=== PATIENT | male | born 1935 | race Caucasian/White ===

== ENCOUNTER 2018-02-03 13:44 | Outpatient (CLI) | payer MEDICARE, BC ==
[2018-02-03 16:12] LABS: Hemoglobin 13.4 g/dL (14.0-18.0); Mean Corpuscular HGB CONC 31.2 g/dL (32.0-36.0); Mean Corpuscular Hemoglobin 29.2 pg (27.0-31.0); Mean Corpuscular Volume 93.4 fL (78.0-98.0); Mean Platelet Volume 6.4 fL (7.4-10.4); Platelet Count 303 thou/uL (130-400); RBC Distribution Width 12.8 % (11.5-14.5); White Blood Cell (WBC) Count 11.6 thou/uL (4.8-10.8)
[2018-02-03 16:30] LABS: Anion Gap 14 mmol/L (10-20); BUN (Urea Nitrogen) 21 mg/dL (8.4-25.7); Calc. Creatinine Clearance 0 mL/min (70-130); Calcium 9.3 mg/dL (7.8-10.44); Carbon Dioxide 24 mmol/L (23-31); Chloride 98 mmol/L (98-107); Estimated GFR-MDRD Greater than 90; Glucose 101 mg/dL (83-110); Potassium 4.3 mmol/L (3.5-5.1); Sodium 132 mmol/L (136-145)
--- NOTE | 2018-02-04 22:45 | EKG ---
Test Reason : Blood Pressure : / mmHG Vent. Rate : 063 BPM Atrial Rate : 063 BPM P-R Int : 166 ms QRS Dur : 072 ms QT Int : 396 ms P-R-T Axes : 082 028 053 degrees QTc Int : 405 ms Poor data quality, interpretation may be adversely affected Sinus rhythm with marked sinus arrhythmia Cannot rule out Anterior infarct , age undetermined Abnormal ECG When compared with ECG of 04-MAR-1999 04:34, Incomplete right bundle branch block is no longer Present Confirmed by KATHY HENRY, DR. Saunders ([id number]) on 02/04/2018 10:44:42 PM Referred By: JORGE A Confirmed By:DR. Nicky CHAVEZ MD
== END 2018-02-03 13:45 | disposition home or self-care (01) ==
LOC: LABBT 13:44
PROVIDERS: ATTEND Neurological Surgery
DX: Z01.818 Encounter for other preprocedural examination (principal); M48.062 Spinal stenosis, lumbar region with neurogenic claudication
CPT/HCPCS: 80048; 85027; 93005; 93010

== ENCOUNTER 2018-02-07 06:07 | Observation (INO) | payer MEDICARE, BC ==
[2018-02-03 13:58] VITALS: BMI 23.1
[2018-02-07] MEDS ORDERED: Thrombin 5000 UNITS/5 ML VIAL ONE (06:52)
[2018-02-07] MEDS ORDERED: CEFAZOLIN/Water 2 GM/20 ML SYRINGE ONE (07:41)
[2018-02-07] MEDS ORDERED: Fentanyl 100 MCG/2 ML VIAL ONE ×5 (07:41→11:44)
[2018-02-07] MEDS ORDERED: Hydrocortisone Sod Succ/PF 100 mg/2 ml Vial ONE (07:43)
--- NOTE | 2018-02-07 10:20 | OP ---
DATE OF PROCEDURE: 02/07/2018 SURGEON: Jose Daniel Ventura M.D. PRIMARY CLINICIAN: Natividad Calero PA-C. PROCEDURE PERFORMED: L4-L5 laminectomy and right L4-L5 discectomy. PROCEDURE IN DETAIL: The patient was brought into the operating room and intubated. He was rolled i n the prone position on gel-filled chest rolls. Incision was made exposing L4 and L5 and our level w as confirmed by x-ray. We performed complete L5 and inferior L4 laminectomies. We extend the ky ctomy to the right and explored the disk space and found a herniated disk compressing the right L5 ne rve root. The disc was incised and debrided in multiple fragments and a complete decompression was a chieved. Significant CSF was emanating from the region of the dura and the region of the disc. This was anterior and could not be visualized. Gelfoam was used in the lateral recess. The wound was th en extensively irrigated, immaculate hemostasis was secured. Vancomycin powder was applied and the w ound was closed in anatomic layers.
[2018-02-07] MEDS ORDERED: Glycopyrrolate 0.2 MG/ML 5 ML SYRINGE ONE (13:44)
[2018-02-07] MEDS ORDERED: Lidocaine 1% PF 5 ML VIAL ONE (13:44)
[2018-02-07] MEDS ORDERED: PROPOFOL 200 MG/20 ML VIAL ONE (13:44)
[2018-02-07] MEDS ORDERED: PHENYLEPHRINE-NS 100 MCG/ML 10 ML SYRINGE ONE (13:44)
[2018-02-07] MEDS ORDERED: ePHEDrine/0.9% NaCl/PF SYRINGE 50 mg/10 ml ONE (13:44)
[2018-02-07] MEDS ORDERED: Ondansetron HCl/PF 4 MG/2 ML Vial ONE (13:44)
[2018-02-07] MEDS ORDERED: diphenhydrAMINE 25 MG CAP PO PRN (14:21)
[2018-02-07] MEDS ORDERED: Milk Of Magnesia 30 ML UDCUP PO PRN (14:21)
[2018-02-07] MEDS ORDERED: tiZANidine HCl 4 MG TAB PO PRN (14:21)
[2018-02-07] MEDS ORDERED: diphenhydrAMINE 50 MG/ML VIAL IVP PRN (14:21)
[2018-02-07] MEDS ORDERED: Sodium Chloride 0.9% 1,000 ML IV SCH (14:21)
[2018-02-07] MEDS ORDERED: HYDROcodone/Acetaminophen 10/325 mg Tablet PO PRN ×2 (14:21)
[2018-02-07] MEDS ORDERED: Promethazine 25 MG TAB PO PRN (14:21)
[2018-02-07] MEDS ORDERED: Mag-Al 1200 mg/1200 mg/30 ML UDCUP PO PRN (14:21)
[2018-02-07] MEDS ORDERED: traMADol HCl 50 MG TAB PO PRN (14:21)
[2018-02-07] MEDS ORDERED: Promethazine HCl 12.5 MG SUPP PR PRN (14:21)
[2018-02-07] MEDS ORDERED: Promethazine HCl 25 MG/ML VIAL IM PRN (14:21)
[2018-02-07] MEDS ORDERED: Ondansetron HCl/PF 4 MG/2 ML Vial IM PRN (14:23)
[2018-02-07] MEDS ORDERED: Morphine 2 MG/ML SYRINGE SLOW IVP PRN ×2 (14:29→14:31)
[2018-02-07] MEDS: traMADol HCl 50 MG TAB PO PRN ×2 (15:40→18:40)
[2018-02-07] MEDS ORDERED: Ondansetron HCl/PF 4 MG/2 ML Vial IVP PRN (15:45)
--- NOTE | 2018-02-07 19:37 | PDOC.PN ---
- Subjective Encounter Start Date: 02/07/18 Encounter Start Time: 19:35 Subjective: Consulted for med mgmt s/p L4-L5 laminectomy. Hx of DMII, HTN, CAD -: lumbar radiculopathy. Some pain in low back when lying supine. -: Reviewed pertinent hx, labs, EKG's. - Objective MAR Reviewed: Yes Vital Signs & Weight: Vital Signs (12 hours) Temp Pulse Resp BP Pulse Ox 02/07/18 15:31 97.5 F L 69 16 126/61 96 02/07/18 12:55 96.7 F L 69 20 144/69 H 98 Weight Weight 185 lb 7.986 oz Additional Labs: Accuchecks 02/07/18 07:12 POC Glucose 91 Laboratory Tests 02/03/18 02/03/18 14:55 14:55 WBC 11.6 H Hgb 13.4 L Hct 43.0 Plt Count 303 Sodium 132 L Potassium 4.3 Chloride 98 Carbon Dioxide 24 Anion Gap 14 BUN 21 Creatinine 0.76 Estimated GFR (MDRD) Greater than 90 Glucose 101 Calcium 9.3 EKG Reviewed by me: Yes (Tele - SR in 60's) Phys Exam - Physical Examination Constitutional: NAD alert, responsive HEENT: PERRLA, sclera anicteric, oral pharynx no lesions Neck: no nodes, no JVD, supple, full ROM Respiratory: no wheezing, no rales, no rhonchi, clear to auscultation bilateral S1, S2 Cardiovascular: RRR, no significant murmur, no rub, gallop Gastrointestinal: soft, non-tender, no distention, positive bowel sounds Musculoskeletal: no edema, pulses present Neurological: normal sensation, moves all 4 limbs Psychiatric: normal affect, A&O x 3 Skin: no rash, normal turgor, cap refill <2 seconds Dx/Plan (1) Diabetes mellitus, type II, insulin dependent Code(s): E11.9 - TYPE 2 DIABETES MELLITUS WITHOUT COMPLICATIONS; Z79.4 - CANDY DIPPER HAND (CURRENT) USE OF INSULIN Status: Chronic Comment: ISS, ADA, serial accuchecks, resume home Lantus in am (2) HTN (hypertension) Code(s): I10 - ESSENTIAL (PRIMARY) HYPERTENSION Status: Chronic Qualifiers: Hypertension type: essential hypertension Qualified Code(s): I10 - Essential (primary) hypertension Comment: Continue Metoprolol, Losartan and Cardura, serial monitoring (3) CAD (coronary artery disease) Code(s): I25.10 - ATHSCL HEART DISEASE OF [place] CORONARY ARTERY W/O ANG PCTRS Status: Chronic Comment: Stable, continue Lipitor, ASA (4) Lumbar radiculopathy Code(s): M54.16 - RADICULOPATHY, LUMBAR REGION Status: Acute Comment: L4-L5 laminectomy (5) Status post lumbar laminectomy Code(s): Z98.890 - OTHER SPECIFIED POSTPROCEDURAL STATES Status: Acute Comment: Pain control, PT/OT - Plan continue antibiotics, PT/OT, social worker delinquency prevention, incentive spirometry, out of bed/ ambulate, DVT proph w/SCDs Stable currently -: ISS for reflexive glucose coverage -: Start home Metoprolol, Losartan -: Pain control with T#3 due to [place] intolerance -: Likely home in 24h * .
[2018-02-07] MEDS ORDERED: Dextrose 50% Abboject 50 ML SYRINGE SLOW IVP PRN (19:42)
[2018-02-07] MEDS ORDERED: Dextrose 5% in Water 1,000 ML IV PRN (19:42)
[2018-02-07] MEDS ORDERED: HumaLOG 300 UNITS/3 ML VIAL SC PRN ×2 (19:42)
[2018-02-07] MEDS ORDERED: Simvastatin 40 MG TAB PO SCH (21:00)
[2018-02-07] MEDS ORDERED: Ezetimibe 10 MG TAB PO SCH (21:00)
[2018-02-07] MEDS ORDERED: Doxazosin Mesylate 4 MG TAB PO SCH (21:00)
[2018-02-07] MEDS ORDERED: OLOPATADINE HCL EA EYE SCH (21:00)
[2018-02-07] MEDS ORDERED: Non-Formulary Item 1 EACH (Ezetimibe/Simvastatin [Ezetimibe-Simvastatin 10-40 Mg] 1 TAB) PO SCH (21:00)
[2018-02-07] MEDS ORDERED: Non-Formulary Item 1 EACH (Insulin Glargine,Hum.Rec.Anlog [Lantus Solostar] 35 UNITS) SQ SCH (21:00)
[2018-02-07] MEDS ORDERED: Insulin Glargine 35 UNITS in Pre-Filled Syringe 1 EACH SC SCH (21:00)
[2018-02-07] MEDS ORDERED: Gabapentin 300 MG CAP PO SCH (21:30)
[2018-02-07] MEDS: Acetaminophen/Codeine 30-300mg Tablet PO PRN (22:12)
[2018-02-07] MEDS: Metoprolol Tartrate 50 MG TAB PO SCH (22:14)
[2018-02-07] MEDS: Ketotifen Fumarate 0.025% Ophth Soln 5 ml Bottle EA EYE SCH (22:16)
[2018-02-07] MEDS: CEFAZOLIN/Water 2 GM/20 ML SYRINGE SLOW IVP SCH (22:18)
[2018-02-08] MEDS: CEFAZOLIN/Water 2 GM/20 ML SYRINGE SLOW IVP SCH (05:35)
[2018-02-08 05:52] VITALS: TEMP 98.3
[2018-02-08] MEDS: Acetaminophen/Codeine 30-300mg Tablet PO PRN ×2 (06:01→10:24)
[2018-02-08] MEDS ORDERED: metFORMIN 500 MG TAB PO SCH (08:00)
[2018-02-08] MEDS ORDERED: predniSONE 5 MG TAB PO SCH (08:00)
--- NOTE | 2018-02-08 08:15 | DIS ---
DATE OF ADMISSION: 02/07/2018 DATE OF DISCHARGE: 02/08/2018 ATTENDING PHYSICIAN: Jose Daniel Ventura M.D. HOSPITAL COURSE: The patient is an 83-year-old male status post L4-L5 laminectomy for lumb ar stenosis and neurogenic claudication. During the surgery, there was small CSF leak. Following th e surgery, the patient was transitioned to the 2nd floor where his pain was well controlled with p.o. medications, he was tolerating regular diet, and he was voiding appropriate. The patient has been u p ambulating short distances with his walker. They did report small amount of bloody drainage from t he incision overnight, but this did not saturate the dressing or require dressing changes. I am visiting with the patient this morning, he is comfortable, in no acute distress. He has 5/5 str ength throughout. No focal motor weaknesses. His sensation is intact to light touch. I examined hi s incision and it appears dry with no active drainage. There is a small amount of bloody discharge o n the dressing and we will change his dressing this morning. We will plan to dismiss the patient to home. I have discussed home care with b.i.d. dressing changes and they will monitor the incision closely. They will contact us if he has any persistent drainage. I have also discussed other home care precautions such as no bending, twisting or lifting greater t craig 10 pounds. He has been provided scripts with [place] and [facility]. We will follow up in 2 weeks a s scheduled. Please reach out to Neurosurgery for additional questions or concerns.
[2018-02-08 08:31] VITALS: BP 109/51
[2018-02-08] MEDS ORDERED: FLUoxetine HCl 10 MG CAP PO SCH (09:00)
[2018-02-08] MEDS ORDERED: Losartan 25 MG TAB PO SCH (09:00)
[2018-02-08] MEDS ORDERED: Ferrous Sulfate 325 MG TAB PO SCH (09:00)
[2018-02-08] MEDS ORDERED: Gabapentin 300 MG CAP PO SCH (09:00)
[2018-02-08] MEDS: Metoprolol Tartrate 50 MG TAB PO SCH (09:48)
[2018-02-08] MEDS: Ketotifen Fumarate 0.025% Ophth Soln 5 ml Bottle EA EYE SCH (09:49)
== END 2018-02-08 12:35 | disposition home or self-care (01) ==
LOC: SDC 06:07 → 2SW 13:09
PROVIDERS: ADMIT Neurological Surgery; ATTEND Neurological Surgery
PROC: 0ST20ZZ Resection of Lumbar Vertebral Disc, Open Approach (ICD-10-PCS; principal; 2018-02-07)
PROC: 01NB0ZZ Release Lumbar Nerve, Open Approach (ICD-10-PCS; 2018-02-07)
DX: M48.062 Spinal stenosis, lumbar region with neurogenic claudication (principal); M51.16 Intervertebral disc disorders with radiculopathy, lumbar region; I25.10 Atherosclerotic heart disease of native coronary artery without angina pectoris; I10 Essential (primary) hypertension; E78.5 Hyperlipidemia, unspecified; E11.9 Type 2 diabetes mellitus without complications; K21.9 Gastro-esophageal reflux disease without esophagitis; M19.90 Unspecified osteoarthritis, unspecified site; G89.29 Other chronic pain; M25.569 Pain in unspecified knee; Z79.4 Long term (current) use of insulin; Z79.82 Long term (current) use of aspirin; Z79.899 Other long term (current) drug therapy; Z88.2 Allergy status to sulfonamides; Z95.5 Presence of coronary angioplasty implant and graft
CPT/HCPCS: 63047; 63048; 76001; 82962 ×2; 96374 ×2; 96376; 97116; 97139; G0378; G8978; G8979; 36416; J1200; J1720; J2001; J2405; J2704; J3010; J3370

== ENCOUNTER 2018-07-11 12:44 | Outpatient (CLI) | payer MEDICARE, BC ==
[~2018-07-11 12:44] MED LIST: Gadobenate Dimeglumine 529 MG/1 ML (20ML VIAL) ONE
--- NOTE | 2018-07-11 15:51 | MRI ---
MRI LUMBAR SPINE WITH AND WITHOUT CONTRAST: 07/11/2018 HISTORY: An 83-year-old male with M48.062, lumbar stenosis with claudication. COMPARISON: None. TECHNIQUE: Multiple sequences obtained in axial and sagittal planes, pre and post IV injection of gadolinium-bas ed contrast agent: MultiHance 20 mL. FINDINGS: For the purposes of this report, it will be assumed that there are 5 lumbar-type vertebrae. The vert ebral body heights are maintained. No major bone marrow signal abnormality. No major spondylolisthes is. The findings by individual levels are as follows: T12-L1: Normal. The conus medullaris terminates at this level. L1-L2: Essentially normal. L2-L3: Moderate disk space narrowing. Slight degenerative retrolisthesis of L2 on L3. Diffuse disk bulge. Mild bilateral degenerative facet changes. Mild bilateral neural foraminal stenosis. Mild central spinal canal stenosis. Prominent posterior epidural fat pad results in severe thecal sac sagrario nosis. L3-L4: Severe bilateral degenerative facet disease. Moderate disk space narrowing. Mild diffuse di sk bulge. Broad-based disk-osteophytic bar complex encroaches upon the anterior aspect of the spinal canal. Moderately thickened ligamentum flavum and facet hypertrophy encroach upon the posterior asp ect of the spinal canal. Moderate to severe central spinal canal stenosis. Severe thecal sac stenos is. High-grade lateral recess stenosis bilaterally. Mild to moderate bilateral neural foraminal sagrario nosis. L4-L5: Moderate to severe disk space narrowing, asymmetrically worse on the right. Moderate to barbara re right neural foraminal stenosis, with an asymmetrically prominent right far lateral component of d isk bulge-osteophytic bar complex indenting the inferior surface of the right L4 nerve root at the ne ural foramen and lateral to the neural foramen, with enhancement of or around the exiting nerve root with edema. Mild to moderate left neural foraminal stenosis. Prominent diffuse disk bulge. Severe right degenerative facet changes. Mild to moderate left degenerative facet changes. Moderate to sev ere central stenosis. Lateral recess stenosis bilaterally, right greater than left. Midline laminec candie defect. Enhancement of midline retrospinal soft tissues. This enhancement could either represe nt granulation tissue or scar tissue, depending on the time of the surgery. There is a fluid collect ion located posterior to the dorsal lumbar fascia, which is elongated in the craniocaudal dimension. Short axis caliber varies by exact location, but it is approximately 1 x 0.7 cm. The craniocaudal d imension is approximately 6 cm. It contains at least one septation. L5-S1: Generous caliber of spinal canal and thecal sac. Bilaterally hypoplastic facet joints. Norm al disk. No neural foraminal stenosis. Midline laminectomy defect with enhancement of midline retro spinal soft tissues. IMPRESSION: 1. Status post midline laminectomies at L4-L5 and L5-S1. 2. Impingement on the exiting right L4 nerve root at the peripheral aspect of the right L4-5 neural foramen, with enhancement. 3. Vertically oriented, thin, post surgical, superficial fluid collection, posterior to the dorsal l umbar fascia, at the levels of the laminectomy. 4. Lateral recess stenosis, especially on the right, at L4-L5. 5. High-grade central spinal canal stenosis, including severe thecal sac stenosis, at L3-L4. 6. Severe bilateral facet osteoarthrosis at L3-L4. LATANYA Wayne POS: MICHAEL
== END 2018-07-11 12:45 | disposition home or self-care (01) ==
LOC: TBSIIMAG 12:44
PROVIDERS: ATTEND Neurological Surgery
DX: M48.062 Spinal stenosis, lumbar region with neurogenic claudication (principal); M47.816 Spondylosis without myelopathy or radiculopathy, lumbar region; Z98.890 Other specified postprocedural states
CPT/HCPCS: 72158; 82565; A9577

== ENCOUNTER 2023-10-16 12:43 | Inpatient (IN) | payer BC, MEDICARE ==
[2023-10-16 13:31] LABS: #Basophils 0.03 10x3/uL (0.0-0.2); #Eosinphils Less than 0.03 10x3/uL (0.0-0.7); %Basophils 0.2 % (0.0-1.0); %Eosinophils 0.1 % (0.0-10.0); %Lymphocytes 5.4 % (21.0-51.0); %Monocytes 6.8 % (0.0-10.0); %Neutrophils 86.9 % (42.0-75.0); Hematocrit 39.6 % (42.0-52.0); Hemoglobin 13.5 g/dL (14.0-18.0); Mean Corpuscular HGB CONC 34.1 g/dL (32.0-36.0); Mean Corpuscular Hemoglobin 29.9 pg (27.0-31.0); Mean Corpuscular Volume 87.6 fL (78.0-98.0); Mean Platelet Volume 8.1 fL (7.4-10.4); Platelet Count 221 10x3/uL (130-400); Red Blood Cell (RBC) Count 4.52 mill/uL (4.70-6.10)
[2023-10-16 13:45] LABS: ALT (SGPT) 14 U/L (8-55); AST (SGOT) 19 U/L (5-34); Albumin 3.1 g/dL (3.4-4.8); Alkaline Phosphatase 55 U/L (40-110); Anion Gap 15 mmol/L (10-20); BUN (Urea Nitrogen) 23 mg/dL (8.4-25.7); Bilirubin, Total 0.5 mg/dL (0.2-1.2); Calc. Creatinine Clearance 0 mL/min (70-130); Calcium 9.4 mg/dL (7.8-10.44); Carbon Dioxide 20 mmol/L (23-31); Chloride 93 mmol/L (98-107); Estimated GFR 87; Globulin 2.9 g/dL (2.4-3.5); Glucose 84 mg/dL (83-110); Potassium 4.6 mmol/L (3.5-5.1); Sodium 123 mmol/L (136-145)
[2023-10-16 13:51] LABS: Troponin I 0.013 ng/mL (< 0.028)
[2023-10-16] MEDS ORDERED: cefTRIAXone (ROCEPHIN) 1 GM VIAL ONE (14:31)
[2023-10-16] MEDS ORDERED: Acetaminophen 325 MG TAB ONE (14:31)
[2023-10-16 17:25] LABS: Bilirubin Negative (Negative); Blood, Urine 1+ (Negative); CAUTI Indications for Culture Alt mental st,lethar; Clarity Turbid (Clear); Glucose, Urine (Dipstick) Normal (Negative); Ketone, Urine Negative (Negative); Leukocyte 250 Leu/uL (Negative); Nitrite Negative (Negative); Protein, Urine (Dipstick) 10 mg/dL (Neg-Trace); Specific Gravity, Urine 1.018 (1.002-1.036); Squamous Epithelial 0-3 HPF (0-3); Urobilinogen Normal mg/dL (Less than 2); WBC/HPF 21-50 HPF (0-3); pH, Urine 5.5 (5.0-9.0)
[2023-10-16 17:26] LABS: Bacteria/HPF 1+ HPF (None Seen)
[2023-10-16 17:27] LABS: Urine Culture Reflex Yes Yes
[2023-10-16] MEDS ORDERED: Ondansetron ODT 4 MG TAB PO PRN (17:44)
[2023-10-16] MEDS ORDERED: Acetaminophen 325 MG TAB PO PRN (17:44)
[2023-10-16] MEDS ORDERED: Acetaminophen 650 MG Suppository PR PRN (17:44)
[2023-10-16] MEDS ORDERED: Ondansetron PF 4 MG/2 ML Vial IVP PRN (17:44)
[2023-10-16] MEDS ORDERED: Dextrose 50% Abboject 50 ML SYRINGE SLOW IVP PRN (18:35)
[2023-10-16] MEDS ORDERED: Glucagon 1 MG/ML KIT IM PRN (18:35)
[2023-10-16] MEDS ORDERED: Dextrose 5% in Water 1,000 ML IV PRN (18:35)
[2023-10-16 20:06] VITALS: BMI 21.6
[2023-10-16 20:11] LABS: Anion Gap 13 mmol/L (10-20); BUN (Urea Nitrogen) 20 mg/dL (8.4-25.7); Calc. Creatinine Clearance 73 mL/min (70-130); Calcium 8.8 mg/dL (7.8-10.44); Carbon Dioxide 21 mmol/L (23-31); Chloride 94 mmol/L (98-107); Estimated GFR 86; Glucose 130 mg/dL (83-110); Potassium 4.7 mmol/L (3.5-5.1); Sodium 123 mmol/L (136-145)
[2023-10-16 20:13] LABS: Magnesium 1.4 mg/dL (1.6-2.6); Phosphorus 3.1 mg/dL (2.3-4.7)
[2023-10-16] MEDS ORDERED: Electrolyte Replacement Protocol FS SCH (20:30)
[2023-10-16] MEDS: Magnesium Sulfate In Water 4 GM in Premix 1 BAG IVPB SCH (22:15)
[2023-10-16] MEDS: Sodium Chloride 0.9% 1,000 ML IV SCH (22:16)
[2023-10-16] MEDS: Saccharomyces boulardii 250 MG CAP PO SCH (23:01)
[2023-10-17 05:17] LABS: #Basophils 0.07 10x3/uL (0.0-0.2); %Basophils 0.5 % (0.0-1.0); %Lymphocytes 21.7 % (21.0-51.0); %Monocytes 7.5 % (0.0-10.0); %Neutrophils 68.7 % (42.0-75.0); Hematocrit 41.6 % (42.0-52.0); Hemoglobin 13.7 g/dL (14.0-18.0); Mean Corpuscular HGB CONC 32.9 g/dL (32.0-36.0); Mean Corpuscular Hemoglobin 30.1 pg (27.0-31.0); Mean Corpuscular Volume 91.4 fL (78.0-98.0); Platelet Count 215 10x3/uL (130-400); RBC Distribution Width 15.3 % (11.5-14.5); Red Blood Cell (RBC) Count 4.55 mill/uL (4.70-6.10)
[2023-10-17 05:38] LABS: Anion Gap 15 mmol/L (10-20); BUN (Urea Nitrogen) 19 mg/dL (8.4-25.7); Calc. Creatinine Clearance 73 mL/min (70-130); Calcium 9.1 mg/dL (7.8-10.44); Carbon Dioxide 21 mmol/L (23-31); Chloride 95 mmol/L (98-107); Estimated GFR 86; Glucose 68 mg/dL (83-110); Sodium 127 mmol/L (136-145)
[2023-10-17] MEDS ORDERED: Magnesium Sulfate In Water 4 GM in Premix 1 BAG IVPB SCH (08:00)
[2023-10-17] MEDS: Magnesium 2 GM/50 ML(in water) 2 GM in Premix 1 BAG IVPB SCH (08:46)
[2023-10-17] MEDS: Aspirin 81 mg Enteric Coated Tablet PO SCH (08:47)
[2023-10-17] MEDS: predniSONE 5 MG TAB PO SCH (08:48)
[2023-10-17] MEDS: Saccharomyces boulardii 250 MG CAP PO SCH (08:48)
[2023-10-17] MEDS: LevoFLOXacin 750 mg/D5W 750 MG in Premix 1 BAG IVPB SCH (11:00)
[2023-10-17] MEDS ORDERED: cefTRIAXone\\ROCEPHIN 1 GM in Sodium Chloride 0.9% 100 ML IVPB SCH (14:00)
[2023-10-17 14:14] VITALS: BMI 21.6
[2023-10-17] MEDS ORDERED: Dextrose 50% Abboject 50 ML SYRINGE SLOW IVP PRN (17:49)
[2023-10-17] MEDS ORDERED: Dextrose 5% in Water 1,000 ML IV PRN (17:49)
[2023-10-17] MEDS ORDERED: Glucagon 1 MG/ML KIT IM PRN (17:49)
[2023-10-17] MEDS: Metoprolol Tartrate 25 MG TAB PO SCH (19:57)
[2023-10-17] MEDS: Gabapentin 300 MG CAP PO SCH ×2 (19:58→19:59)
[2023-10-17] MEDS: Tamsulosin HCl 0.4 MG CAP PO SCH (19:59)
[2023-10-17] MEDS: Ferrous Sulfate 325 MG TAB PO SCH (20:00)
[2023-10-17] MEDS: Insulin Glargine 30 UNITS/0.3 ML VIAL SC SCH (20:00)
[2023-10-17] MEDS: HumaLOG 300 UNITS/3 ML VIAL SC PRN (20:24)
[2023-10-18 04:54] LABS: #Basophils 0.05 10x3/uL (0.0-0.2); %Basophils 0.7 % (0.0-1.0); %Eosinophils 1.4 % (0.0-10.0); %Lymphocytes 23.3 % (21.0-51.0); Hematocrit 37.7 % (42.0-52.0); Hemoglobin 12.8 g/dL (14.0-18.0); Mean Corpuscular Hemoglobin 29.7 pg (27.0-31.0); Mean Corpuscular Volume 87.5 fL (78.0-98.0); Mean Platelet Volume 7.8 fL (7.4-10.4); Platelet Count 182 10x3/uL (130-400); Red Blood Cell (RBC) Count 4.31 mill/uL (4.70-6.10)
[2023-10-18 05:14] LABS: Anion Gap 10 mmol/L (10-20); BUN (Urea Nitrogen) 14 mg/dL (8.4-25.7); Calc. Creatinine Clearance 87 mL/min (70-130); Calcium 9.1 mg/dL (7.8-10.44); Carbon Dioxide 26 mmol/L (23-31); Chloride 96 mmol/L (98-107); Estimated GFR 91; Glucose 92 mg/dL (83-110); Potassium 3.6 mmol/L (3.5-5.1); Sodium 128 mmol/L (136-145)
[2023-10-18] MEDS: LevoFLOXacin 750 MG TAB PO SCH (09:08)
[2023-10-18] MEDS: Finasteride 5 MG TAB PO SCH (09:08)
[2023-10-18] MEDS: Ferrous Sulfate 325 MG TAB PO SCH (09:09)
[2023-10-18] MEDS: Famotidine 20 MG TAB PO SCH (21:19)
[2023-10-18] MEDS: Valsartan 80 MG TAB PO SCH (21:19)
[2023-10-18] MEDS: Enoxaparin 40 MG (0.4 mL) SYRINGE SC SCH (21:20)
[2023-10-18] MEDS: Insulin Glargine 30 UNITS/0.3 ML VIAL SC SCH (21:20)
[2023-10-19 04:41] LABS: Anion Gap 10 mmol/L (10-20); BUN (Urea Nitrogen) 17 mg/dL (8.4-25.7); Calc. Creatinine Clearance 83 mL/min (70-130); Calcium 9.3 mg/dL (7.8-10.44); Carbon Dioxide 26 mmol/L (23-31); Chloride 96 mmol/L (98-107); Estimated GFR 89; Glucose 127 mg/dL (83-110); Potassium 3.9 mmol/L (3.5-5.1); Sodium 128 mmol/L (136-145)
[2023-10-19] MEDS: LevoFLOXacin 750 MG TAB PO SCH (06:19)
[2023-10-19] MEDS ORDERED: hydrALAZINE 20 MG/ML VIAL SLOW IVP PRN (09:04)
[2023-10-19] MEDS: Polyethylene Glycol 3350 17 GM Packet PO PRN (12:27)
[2023-10-19] MEDS: TOLVAPTAN 30 MG TAB PO SCH (17:24)
[2023-10-20] MEDS: LevoFLOXacin 500 MG TAB PO SCH (06:25)
[2023-10-20 09:10] LABS: #Basophils 0.06 10x3/uL (0.0-0.2); %Basophils 0.4 % (0.0-1.0); %Eosinophils 0.8 % (0.0-10.0); %Lymphocytes 15.1 % (21.0-51.0); %Monocytes 10.5 % (0.0-10.0); %Neutrophils 72.6 % (42.0-75.0); Hematocrit 45.9 % (42.0-52.0); Hemoglobin 15.2 g/dL (14.0-18.0); Mean Corpuscular HGB CONC 33.1 g/dL (32.0-36.0); Mean Corpuscular Hemoglobin 29.6 pg (27.0-31.0); Mean Corpuscular Volume 89.5 fL (78.0-98.0); Platelet Count 239 10x3/uL (130-400); RBC Distribution Width 15.2 % (11.5-14.5); Red Blood Cell (RBC) Count 5.13 mill/uL (4.70-6.10)
[2023-10-20 09:58] LABS: Anion Gap 13 mmol/L (10-20); BUN (Urea Nitrogen) 19 mg/dL (8.4-25.7); Calc. Creatinine Clearance 78 mL/min (70-130); Calcium 9.7 mg/dL (7.8-10.44); Carbon Dioxide 25 mmol/L (23-31); Chloride 98 mmol/L (98-107); Estimated GFR 88; Glucose 98 mg/dL (83-110); Potassium 4.2 mmol/L (3.5-5.1); Sodium 132 mmol/L (136-145)
[2023-10-20] MEDS: HumaLOG 300 UNITS/3 ML VIAL SC PRN (16:28)
[2023-10-21 05:45] LABS: #Basophils 0.07 10x3/uL (0.0-0.2); %Basophils 0.6 % (0.0-1.0); %Eosinophils 1.2 % (0.0-10.0); %Lymphocytes 19.4 % (21.0-51.0); %Monocytes 11.8 % (0.0-10.0); %Neutrophils 66.5 % (42.0-75.0); Hematocrit 39.6 % (42.0-52.0); Mean Corpuscular HGB CONC 32.8 g/dL (32.0-36.0); Mean Corpuscular Volume 91.2 fL (78.0-98.0); Platelet Count 218 10x3/uL (130-400); RBC Distribution Width 15.2 % (11.5-14.5); Red Blood Cell (RBC) Count 4.34 mill/uL (4.70-6.10)
[2023-10-21 06:18] LABS: Anion Gap 13 mmol/L (10-20); BUN (Urea Nitrogen) 30 mg/dL (8.4-25.7); Calc. Creatinine Clearance 68 mL/min (70-130); Calcium 9.2 mg/dL (7.8-10.44); Carbon Dioxide 25 mmol/L (23-31); Chloride 100 mmol/L (98-107); Estimated GFR 84; Glucose 127 mg/dL (83-110); Potassium 4.2 mmol/L (3.5-5.1); Sodium 134 mmol/L (136-145)
[2023-10-21 12:10] VITALS: BP 114/56; TEMP 97.7
== END 2023-10-21 11:45 | DRG 644 ==
LOC: ERS 12:43 → 2NO 18:27 → T4-B 10-18 16:01
PROVIDERS: ADMIT Internal Medicine; ATTEND Internal Medicine
DX: E22.2 Syndrome of inappropriate secretion of antidiuretic hormone (principal); E87.20 Acidosis, unspecified; N39.0 Urinary tract infection, site not specified; B96.5 Pseudomonas (aeruginosa) (mallei) (pseudomallei) as the cause of diseases classified elsewhere; I25.10 Atherosclerotic heart disease of native coronary artery without angina pectoris; E78.5 Hyperlipidemia, unspecified; K21.9 Gastro-esophageal reflux disease without esophagitis; M19.90 Unspecified osteoarthritis, unspecified site; D64.9 Anemia, unspecified; F32.A Depression, unspecified; Z90.49 Acquired absence of other specified parts of digestive tract; R31.29 Other microscopic hematuria; E87.8 Other disorders of electrolyte and fluid balance, not elsewhere classified; E88.09 Other disorders of plasma-protein metabolism, not elsewhere classified; F41.9 Anxiety disorder, unspecified; E11.40 Type 2 diabetes mellitus with diabetic neuropathy, unspecified; E86.1 Hypovolemia; I12.9 Hypertensive chronic kidney disease with stage 1 through stage 4 chronic kidney disease, or unspecified chronic kidney disease; N18.2 Chronic kidney disease, stage 2 (mild); E11.22 Type 2 diabetes mellitus with diabetic chronic kidney disease; N41.9 Inflammatory disease of prostate, unspecified; G62.9 Polyneuropathy, unspecified; Z88.2 Allergy status to sulfonamides; Z79.899 Other long term (current) drug therapy; Z79.84 Long term (current) use of oral hypoglycemic drugs; Z79.4 Long term (current) use of insulin; Z79.52 Long term (current) use of systemic steroids
CPT/HCPCS: 36415; 36416; 71045; 76770; 80048; 80053; 81001; 83605; 83735; 83930; 83935; 84100; 84300; 84484; 85025; 87040; 87077; 87086; 87186; 93005; 96374; 97139; J0696; J1650; J1815; J1956; J3475; J7050; J7512

== ENCOUNTER 2024-05-06 21:22 | Emergency (ER) | payer BC, MEDICARE ==
[2024-05-06 23:44] LABS: #Basophils 0.06 10x3/uL (0.0-0.2); %Basophils 0.7 % (0.0-1.0); %Eosinophils 4.2 % (0.0-10.0); %Lymphocytes 19.6 % (21.0-51.0); %Monocytes 15.2 % (0.0-10.0); %Neutrophils 59.9 % (42.0-75.0); Hematocrit 40.2 % (42.0-52.0); Hemoglobin 13.5 g/dL (14.0-18.0); Mean Corpuscular HGB CONC 33.6 g/dL (32.0-36.0); Mean Corpuscular Hemoglobin 29.4 pg (27.0-31.0); Mean Corpuscular Volume 87.6 fL (78.0-98.0); Platelet Count 204 10x3/uL (130-400); RBC Distribution Width 14.6 % (11.5-14.5); Red Blood Cell (RBC) Count 4.59 mill/uL (4.70-6.10)
[2024-05-06 23:48] LABS: ALT (SGPT) 12 U/L (8-55); AST (SGOT) 21 U/L (5-34); Albumin 2.9 g/dL (3.4-4.8); Alkaline Phosphatase 61 U/L (40-110); Anion Gap 15 mmol/L (10-20); BUN (Urea Nitrogen) 13 mg/dL (8.4-25.7); Bilirubin, Total 0.7 mg/dL (0.2-1.2); Calc. Creatinine Clearance 0 mL/min (70-130); Calcium 8.6 mg/dL (7.8-10.44); Carbon Dioxide 19 mmol/L (23-31); Chloride 102 mmol/L (98-107); Estimated GFR 87; Globulin 2.7 g/dL (2.4-3.5); Glucose 96 mg/dL (83-110); Potassium 3.7 mmol/L (3.5-5.1); Protein, Total 5.6 g/dL (5.8-8.1); Sodium 132 mmol/L (136-145)
[2024-05-06 23:53] LABS: Troponin I 0.018 ng/mL (< 0.028)
== END 2024-05-07 00:35 | disposition home or self-care (01) ==
LOC: ERS 21:22
DX: I95.1 Orthostatic hypotension (principal); I10 Essential (primary) hypertension; E11.9 Type 2 diabetes mellitus without complications; W18.30XA Fall on same level, unspecified, initial encounter
CPT/HCPCS: 36415; 80053; 84484; 85025; 93005

== ENCOUNTER 2024-05-20 10:23 | Inpatient (IN) | payer BC, MEDICARE ==
[2024-05-20 11:33] LABS: Bacteria/HPF 4+ HPF (None Seen); Bilirubin Negative (Negative); Blood, Urine Negative (Negative); CAUTI Indications for Culture Alt mental st,lethar; Clarity Turbid (Clear); Glucose, Urine (Dipstick) Normal (Negative); Ketone, Urine Negative (Negative); Leukocyte 500 Leu/uL (Negative); Nitrite Negative (Negative); Protein, Urine (Dipstick) 10 mg/dL (Neg-Trace); RBC/HPF 0-3 HPF (0-3); Specific Gravity, Urine 1.018 (1.002-1.036); Squamous Epithelial 0-3 HPF (0-3); WBC/HPF Greater than 50 HPF (0-3)
[2024-05-20 11:36] LABS: Urine Culture Reflex Yes Yes
[2024-05-20 12:27] LABS: #Basophils 0.05 10x3/uL (0.0-0.2); %Basophils 0.5 % (0.0-1.0); %Eosinophils 0.9 % (0.0-10.0); %Lymphocytes 14.5 % (21.0-51.0); %Monocytes 8.2 % (0.0-10.0); %Neutrophils 75.7 % (42.0-75.0); Hematocrit 38.9 % (42.0-52.0); Mean Corpuscular HGB CONC 33.3 g/dL (32.0-36.0); Mean Corpuscular Hemoglobin 29.3 pg (27.0-31.0); Platelet Count 157 10x3/uL (130-400); RBC Distribution Width 14.3 % (11.5-14.5)
[2024-05-20 12:39] LABS: Troponin I Less than 0.010 ng/mL (< 0.028)
[2024-05-20 12:46] LABS: ALT (SGPT) 13 U/L (8-55); AST (SGOT) 26 U/L (5-34); Albumin 2.8 g/dL (3.4-4.8); Alkaline Phosphatase 74 U/L (40-110); Anion Gap 14 mmol/L (10-20); BUN (Urea Nitrogen) 16 mg/dL (8.4-25.7); Bilirubin, Total 0.4 mg/dL (0.2-1.2); Calc. Creatinine Clearance 0 mL/min (70-130); Calcium 8.3 mg/dL (7.8-10.44); Carbon Dioxide 25 mmol/L (23-31); Chloride 98 mmol/L (98-107); Estimated GFR 88; Globulin 2.9 g/dL (2.4-3.5); Glucose 33 mg/dL (83-110); Potassium 4.5 mmol/L (3.5-5.1); Protein, Total 5.7 g/dL (5.8-8.1); Sodium 132 mmol/L (136-145)
[2024-05-20] MEDS ORDERED: Dextrose 10% in Water 250 ML ONE (12:47)
[2024-05-20] MEDS ORDERED: Sodium Chloride 0.9% 100 ML ONE (13:00)
[2024-05-20] MEDS ORDERED: cefTRIAXone (ROCEPHIN) 2 GM VIAL ONE (13:00)
[2024-05-20] MEDS ORDERED: Glucagon 1 MG/ML KIT IM PRN (17:07)
[2024-05-20] MEDS ORDERED: Dextrose 50% Abboject 50 ML SYRINGE SLOW IVP PRN (17:07)
[2024-05-20] MEDS ORDERED: Dextrose 5% in Water 1,000 ML IV PRN (17:07)
[2024-05-20 17:33] LABS: Hemoglobin A1c 6.1 % (4.0-6.0)
[2024-05-20 19:21] VITALS: BMI 20.2
[2024-05-20] MEDS ORDERED: Insulin Lispro 100 UNIT/ML 10 ML VIAL SC PRN (20:30)
[2024-05-20] MEDS ORDERED: Cefepime 1 GM in Sodium Chloride 0.9% 100 ML IVPB SCH (21:00)
[2024-05-20] MEDS: Metoprolol Succinate XL 25 MG ER.TAB PO SCH (22:19)
[2024-05-20] MEDS: Pantoprazole 40 MG DR.TAB PO SCH (22:19)
[2024-05-20] MEDS: Ezetimibe 10 MG TAB PO SCH (22:19)
[2024-05-20] MEDS: Calcium Carbonate 600 MG + Vit D TAB PO SCH (22:19)
[2024-05-20] MEDS: Tamsulosin HCl 0.4 MG CAP PO SCH (22:19)
[2024-05-20] MEDS: Valsartan 80 MG TAB PO SCH (22:20)
[2024-05-20] MEDS: Ferrous Sulfate 325 MG TAB PO SCH (22:20)
[2024-05-20] MEDS: Gabapentin 400 MG CAP PO SCH (22:20)
[2024-05-20] MEDS: Atorvastatin Calcium 20 MG TAB PO SCH (22:20)
[2024-05-20] MEDS: Insulin Lispro 100 UNIT/ML 10 ML VIAL SC PRN (22:20)
[2024-05-21 04:49] LABS: #Basophils 0.07 10x3/uL (0.0-0.2); %Basophils 0.7 % (0.0-1.0); %Eosinophils 2.8 % (0.0-10.0); %Lymphocytes 18.3 % (21.0-51.0); %Monocytes 11.6 % (0.0-10.0); %Neutrophils 66.2 % (42.0-75.0); Hematocrit 36.6 % (42.0-52.0); Hemoglobin 12.5 g/dL (14.0-18.0); Mean Corpuscular HGB CONC 34.2 g/dL (32.0-36.0); Mean Corpuscular Hemoglobin 29.3 pg (27.0-31.0); Mean Corpuscular Volume 85.7 fL (78.0-98.0); Mean Platelet Volume 7.8 fL (7.4-10.4); Platelet Count 198 10x3/uL (130-400); RBC Distribution Width 14.3 % (11.5-14.5); Red Blood Cell (RBC) Count 4.27 mill/uL (4.70-6.10)
[2024-05-21 05:49] LABS: Anion Gap 12 mmol/L (10-20); BUN (Urea Nitrogen) 13 mg/dL (8.4-25.7); Calc. Creatinine Clearance 87 mL/min (70-130); Calcium 8.4 mg/dL (7.8-10.44); Carbon Dioxide 25 mmol/L (23-31); Chloride 96 mmol/L (98-107); Estimated GFR 93; Glucose 83 mg/dL (83-110); Sodium 129 mmol/L (136-145)
[2024-05-21] MEDS: Multivit, Therapeutic 1 TAB PO SCH (08:48)
[2024-05-21] MEDS: FLUoxetine HCl 10 MG CAP PO SCH (08:48)
[2024-05-21] MEDS: Enoxaparin 40 MG (0.4 mL) SYRINGE SC SCH (08:48)
[2024-05-21] MEDS: Cefepime 2 GM in Sodium Chloride 0.9% 100 ML IVPB SCH (08:48)
[2024-05-21] MEDS: Cyanocobalamin (Vitamin B-12) 1,000 MCG TAB PO SCH (08:48)
[2024-05-21] MEDS: Sodium Chloride 0.9% 1,000 ML IV SCH (09:43)
[2024-05-21] MEDS: Gabapentin 300 MG CAP PO SCH (11:24)
[2024-05-21] MEDS ORDERED: Cefepime 1 GM in Sodium Chloride 0.9% 100 ML IVPB SCH (21:00)
[2024-05-22 04:31] LABS: #Basophils 0.08 10x3/uL (0.0-0.2); %Eosinophils 4.5 % (0.0-10.0); %Lymphocytes 24.4 % (21.0-51.0); %Neutrophils 55.8 % (42.0-75.0); Hematocrit 36.4 % (42.0-52.0); Mean Corpuscular Hemoglobin 29.1 pg (27.0-31.0); Mean Corpuscular Volume 88.3 fL (78.0-98.0); Mean Platelet Volume 7.9 fL (7.4-10.4); Platelet Count 191 10x3/uL (130-400); RBC Distribution Width 14.5 % (11.5-14.5); Red Blood Cell (RBC) Count 4.12 mill/uL (4.70-6.10)
[2024-05-22 04:52] LABS: Anion Gap 10 mmol/L (10-20); BUN (Urea Nitrogen) 15 mg/dL (8.4-25.7); Calc. Creatinine Clearance 68 mL/min (70-130); Calcium 8.2 mg/dL (7.8-10.44); Carbon Dioxide 24 mmol/L (23-31); Chloride 98 mmol/L (98-107); Estimated GFR 86; Glucose 155 mg/dL (83-110); Potassium 4.3 mmol/L (3.5-5.1); Sodium 128 mmol/L (136-145)
[2024-05-22] MEDS: metFORMIN 500 MG TAB PO SCH (09:11)
[2024-05-22] MEDS: Acetaminophen 325 MG TAB PO PRN (17:42)
[2024-05-22] MEDS: Lidocaine 4% Patch TD SCH (20:57)
[2024-05-22] MEDS: Cephalexin 250 MG CAP PO SCH (20:57)
[2024-05-23 04:34] LABS: #Basophils 0.07 10x3/uL (0.0-0.2); %Basophils 0.8 % (0.0-1.0); %Monocytes 13.1 % (0.0-10.0); %Neutrophils 53.6 % (42.0-75.0); Hematocrit 37.1 % (42.0-52.0); Hemoglobin 12.3 g/dL (14.0-18.0); Mean Corpuscular HGB CONC 33.2 g/dL (32.0-36.0); Mean Corpuscular Hemoglobin 29.3 pg (27.0-31.0); Mean Corpuscular Volume 88.3 fL (78.0-98.0); Mean Platelet Volume 7.8 fL (7.4-10.4); Platelet Count 190 10x3/uL (130-400); RBC Distribution Width 14.4 % (11.5-14.5)
[2024-05-23 05:04] LABS: Anion Gap 11 mmol/L (10-20); BUN (Urea Nitrogen) 17 mg/dL (8.4-25.7); Calc. Creatinine Clearance 71 mL/min (70-130); Calcium 8.5 mg/dL (7.8-10.44); Carbon Dioxide 25 mmol/L (23-31); Chloride 97 mmol/L (98-107); Estimated GFR 87; Glucose 137 mg/dL (83-110); Potassium 4.3 mmol/L (3.5-5.1); Sodium 129 mmol/L (136-145)
[2024-05-23] MEDS: Sodium Chloride 0.9% 1,000 ML IV SCH (09:33)
[2024-05-23] MEDS: Transdermal LIDOCAINE Patch Removal TOP SCH (09:35)
[2024-05-24 04:41] LABS: #Basophils 0.08 10x3/uL (0.0-0.2); %Basophils 1.2 % (0.0-1.0); %Eosinophils 5.8 % (0.0-10.0); %Lymphocytes 29.8 % (21.0-51.0); %Neutrophils 49.8 % (42.0-75.0); Hematocrit 37.1 % (42.0-52.0); Hemoglobin 12.4 g/dL (14.0-18.0); Mean Corpuscular HGB CONC 33.4 g/dL (32.0-36.0); Mean Corpuscular Hemoglobin 29.4 pg (27.0-31.0); Mean Corpuscular Volume 87.9 fL (78.0-98.0); Mean Platelet Volume 7.9 fL (7.4-10.4); Platelet Count 181 10x3/uL (130-400); RBC Distribution Width 14.3 % (11.5-14.5); Red Blood Cell (RBC) Count 4.22 mill/uL (4.70-6.10)
[2024-05-24 05:16] LABS: Anion Gap 9 mmol/L (10-20); BUN (Urea Nitrogen) 17 mg/dL (8.4-25.7); Calc. Creatinine Clearance 81 mL/min (70-130); Calcium 8.2 mg/dL (7.8-10.44); Carbon Dioxide 25 mmol/L (23-31); Chloride 99 mmol/L (98-107); Estimated GFR 90; Glucose 123 mg/dL (83-110); Potassium 4.1 mmol/L (3.5-5.1); Sodium 129 mmol/L (136-145)
[2024-05-24] MEDS: [UNRECOGNIZED DRUG - MIXTURE] PO SCH (08:16)
[2024-05-24] MEDS: predniSONE 5 MG TAB PO SCH (08:19)
[2024-05-24 12:30] VITALS: BMI 20.2
[2024-05-24 15:33] VITALS: TEMP 98.2
[2024-05-24 15:39] VITALS: BP 106/52
[2024-05-24] MEDS ORDERED: Valsartan 80 MG TAB PO SCH (21:00)
== END 2024-05-24 16:20 | DRG 637 ==
LOC: ERS 10:23 → ERHOLD 16:25 → OBSVTOIN 17:03 → 2NO 18:39
PROVIDERS: ADMIT Internal Medicine; ATTEND Internal Medicine
DX: E11.649 Type 2 diabetes mellitus with hypoglycemia without coma (principal); G93.41 Metabolic encephalopathy; E87.1 Hypo-osmolality and hyponatremia; N39.0 Urinary tract infection, site not specified; I10 Essential (primary) hypertension; I25.10 Atherosclerotic heart disease of native coronary artery without angina pectoris; F32.9 Major depressive disorder, single episode, unspecified; E03.9 Hypothyroidism, unspecified; Z96.651 Presence of right artificial knee joint; D64.9 Anemia, unspecified; R53.81 Other malaise; I95.1 Orthostatic hypotension; R29.6 Repeated falls; Z66 Do not resuscitate; Z95.5 Presence of coronary angioplasty implant and graft; Z88.2 Allergy status to sulfonamides; Z79.4 Long term (current) use of insulin; Z79.84 Long term (current) use of oral hypoglycemic drugs; Z79.899 Other long term (current) drug therapy
CPT/HCPCS: 36415; 36416; 51701; 70450; 71045; 80048; 80053; 81001; 83036; 83605; 84443; 84484; 85025; 87040; 87077; 87086; 87186; 93005; 96365; 97139; J0692; J0696; J1650; J1815; J7030; J7512